=== PATIENT | male | born 1965 | race Caucasian/White ===

== ENCOUNTER 2022-11-23 07:41 | Day surgery (SDC) | payer BC, SELFPAY ==
[2022-11-23] VITALS (8 sets, daily range): BP systolic 115–141; BP diastolic 72–89; PULSE 52–61; RESP 15–22; TEMP 36–36.8; O2SAT 94–100
--- NOTE | 2022-11-23 08:10 | ED.GENADULT ---
HPI - General Adult General Chief complaint: Unspecified Stated complaint: food lodged in throat Time Seen by Provider: 11/23/22 07:54 History of Present Illness HPI narrative: Patient is a 57-year-old male who presents ER with esophageal food impaction. Patient has history of esophageal stricture. Last dilation was in 2019. Last night he was eating some pulled pork and Armenian fries. He took 1 bite and immediately got stuck. Since then he has had water brash. When you cannot eat or drink anything. No fevers or chills or sweats. Denies aspiration. Related Data Allergies Allergy/AdvReac Type Severity Reaction Status Date / Time White Fish Allergy Severe HIVES Uncoded 01/14/19 08:42 Cashew Allergy Mild ITCHING Uncoded 01/14/19 08:42 AND SWELLING. DEER BLOOD Allergy Mild THROAT Uncoded 09/21/09 09:28 SWELLING Review of Systems Review of Systems: All systems reviewed & are unremarkable except as noted in HPI and below ENT: Reports dysphagia, Denies throat swelling and Denies tongue swelling Gastrointestinal: Gastrointestinal: Denies abdominal pain, Denies nausea and Reports vomiting PMFSH Past Medical History Medical History (Updated 11/23/22 @ 08:43 by Moses Ortega MD) Esophageal stricture GERD (gastroesophageal reflux disease) Surgical History Surgical History (Updated 11/23/22 @ 08:12 by Moses Ortega MD) History of colonoscopy History of endoscopy Exam Narrative: GENERAL: Well-appearing, well-nourished, and in no acute distress. HEAD: Normocephalic, atraumatic. ENT: Mucous membranes moist. Frequent spitting of oral secretions. CHEST: Clear to auscultation. No respiratory distress. HEART: Regular rate and rhythm. Normal peripheral pulses. ABDOMEN: Soft, nontender, nondistended. EXTREMITIES: Normal range of motion. No edema. SKIN: Warm, dry, no rash. NEURO: Alert and oriented x3. PSYCH: Normal mood and affect. Course Course Emergency Course: Discussed the case with Dr. Knowles. He will take the patient to the GI suite. Vital Signs Vital signs: Vital Signs Temperature 98.3 F 11/23/22 07:43 Pulse Rate 60 11/23/22 07:43 Respiratory Rate 18 11/23/22 07:43 Blood Pressure 131/83 11/23/22 07:43 Pulse Oximetry 98 11/23/22 07:43 Oxygen Delivery Room Air 11/23/22 07:43 Temperature 98.3 F 11/23/22 07:43 Pulse Rate 60 11/23/22 07:43 Respiratory Rate 18 11/23/22 07:43 Blood Pressure 131/83 11/23/22 07:43 Pulse Oximetry 98 11/23/22 07:43 Oxygen Delivery Room Air 11/23/22 07:43 Medical Decision Making Vital Signs Vital Signs: Vital Signs Temperature 98.3 F 11/23/22 07:43 Pulse Rate 60 11/23/22 07:43 Respiratory Rate 18 11/23/22 07:43 Blood Pressure 131/83 11/23/22 07:43 Pulse Oximetry 98 11/23/22 07:43 Oxygen Delivery Room Air 11/23/22 07:43 Temperature 98.3 F 11/23/22 07:43 Pulse Rate 60 11/23/22 07:43 Respiratory Rate 18 11/23/22 07:43 Blood Pressure 131/83 11/23/22 07:43 Pulse Oximetry 98 11/23/22 07:43 Oxygen Delivery Room Air 11/23/22 07:43 Discharge Plan Discharge Clinical Impression: Esophageal obstruction due to food impaction, Food impaction of esophagus Patient Disposition: Still a Patient Condition: Stable Follow-up/Referrals: Ernesto Coello MD [Primary Care Provider] -
[2022-11-23] MEDS: LACTATED RINGERS 1,000 ML 150 ML IV CONT (10:46)
--- NOTE | 2022-11-23 11:15 | WPDANESEPPF ---
Anes - Initial Pre Proc Eval Procedure: Operation Date: 11/23/22 12:00 Proposed Procedures p Esophagogastroduodenoscopy - Zach Knowles MD Date/Time: 11/23/22 11:15 Surgeon: Zach Knowles MD Pre Op Diagnosis: food lodged in throat Patient Data Age: 57 Gender: M Height: 1.91 m Weight: 98.6 kg Last Vital Signs Temp 96.8 F L 11/23/22 10:42 Pulse 53 L 11/23/22 10:42 Resp 18 11/23/22 10:42 BP 127/72 11/23/22 10:42 Pulse Ox 100 11/23/22 10:42 O2 Del Method Room Air 11/23/22 10:42 Allergies Allergy/AdvReac Type Severity Reaction Status Date / Time White Fish Allergy Severe HIVES Uncoded 11/23/22 10:38 Cashew Allergy Mild ITCHING Uncoded 11/23/22 10:38 AND SWELLING. DEER BLOOD Allergy Mild THROAT Uncoded 11/23/22 10:38 SWELLING Patient hx anesthesia problems: none Family hx anesthesia problems: none Results Review: All pre-operative results and documents have been reviewed as part of the pre-operative evaluation. [facility] Past Medical History Medical History (Updated 11/23/22 @ 08:43 by Moses Ortega MD) Esophageal stricture GERD (gastroesophageal reflux disease) Surgical History Surgical History (Updated 11/23/22 @ 08:12 by Moses Ortega MD) History of colonoscopy History of endoscopy Anes - Eval Final PreProcedure Day of Procedure 11/23/22 11:15 Patient weight: normal Heart: regular rate and rhythm Lungs: clear to auscultation Airway: Mallampati scale class II Neurological: alert and oriented Last oral intake: >/= 8 hours ASA classification: II Emergent: no Anesthetic plan: proceed Anesthesia type and monitoring: general GIVS and standard monitoring Results Review: All pre-operative results and documents have been reviewed as part of the pre-operative evaluation. Informed Consent: The patient's anesthetic plan and its attendant risks and benefits were discussed with the patient/family/POA. Questions were solicited and answers provided to the satisfaction of the patient/family/POA.
== END 2022-11-23 12:10 | disposition home or self-care (01) ==
LOC: ANHED 08:43 → ANHENDO 09:11
PROVIDERS: Emergency Provider Emergency Medicine; PCP Family Medicine; Visit Provider Internal Medicine Gastroenterology
PROC: 0DJ08ZZ Inspection of Upper Intestinal Tract, Via Natural or Artificial Opening Endoscopic (ICD-10-PCS; CPT 43235; principal; 2022-11-23 12:00)
DX: T18.128A Food in esophagus causing other injury, initial encounter (principal); K22.2 Esophageal obstruction; K26.9 Duodenal ulcer, unspecified as acute or chronic, without hemorrhage or perforation; K20.0 Eosinophilic esophagitis
CPT/HCPCS: 43247; 43249; 43239; 87081; 88305; 99285; C1726; J2704; J7120

== ENCOUNTER 2022-12-29 00:50 | Day surgery (SDC) | payer BC, SELFPAY ==
[2022-12-19 14:31] VITALS: BMI 28.2
--- NOTE | 2022-12-28 16:28 | PM.HPGS ---
History of Present Illness History of Present Illness Consent: Risks, benefits, and alternatives have been discussed and questions answered. Patient agrees to proceed with procedure. Chief complaint: esophageal obstructionl, hx colon polyps Narrative: Dwayne Holman is a 57 year old male Who recently had presented to the emergency room with a food impaction with a meat bolus that had to be removed emergently. He was found have Inflammation and a severe stricture of the esophagus which was dilated a bit up to 15 mm. also, biopsies revealed high number of eosinophils in the proximal esophagus, 60 per HPF. He has had no significant problems swallowing since the procedure. He returns now for further investigation into ensure healing. he does have a history of colon polyps. Three adenomatous polyps were removed about 4 years ago Review of Systems Review of Systems: All systems reviewed & are unremarkable except as noted in HPI and below PMFSH Past Medical History Medical History Esophageal stricture GERD (gastroesophageal reflux disease) Surgical History Surgical History History of colonoscopy History of endoscopy Social History Social History Smoking status: Never smoker Alcohol intake: current Drinks per week: 12 Substance use: never Substance use type: does not use Living arrangements: with friend(s) Spiritual care concerns: No Meds Home Medications and Allergies Home Medications Medication Instructions Recorded Confirmed Type pantoprazole 40 mg tablet,delayed See Rx Instructions .Route 12/15/22 12/19/22 Rx release .COMPLEX #60 tabs Allergies Allergy/AdvReac Type Severity Reaction Status Date / Time White Fish Allergy Severe HIVES Uncoded 12/29/22 12:05 Cashew Allergy Mild ITCHING Uncoded 12/29/22 12:05 AND SWELLING. DEER BLOOD Allergy Mild THROAT Uncoded 12/29/22 12:05 SWELLING Exam Const: General: alert Orientation/consciousness: patient oriented x3 Resp: Auscultation: clear to auscultation bilaterally Cardio: Rhythm: regular rhythm GI: GI Palp: Yes Soft to palpation and No Tenderness to palpation present (GI) Neuro: General: patient oriented x3 Assessment and Plan Assessment and plan (1) Esophageal stricture: Code(s): K22.2 - Esophageal obstruction Status: Acute Assessment and Plan: EGD with possible biopsy or dilatation or cautery. (2) Colon cancer screening: Code(s): Z12.11 - Encounter for screening for malignant neoplasm of colon Status: Acute Assessment and Plan: Colonoscopy with possible biopsy or polypectomy or cautery or injection of substances.
[2022-12-29 12:08] VITALS: BP 114/74; PULSE 66; RESP 18; TEMP 36.1; O2SAT 99; BMI 26.4
[2022-12-29] MEDS: LACTATED RINGERS 1,000 ML 150 ML IV CONT (12:13)
--- NOTE | 2022-12-29 12:33 | WPDANESEPPF ---
Anes - Initial Pre Proc Eval Procedure: Operation Date: 12/29/22 13:30 Proposed Procedures p Esophagogastroduodenoscopy & Colonoscopy - Zach Knowles MD Date/Time: 12/29/22 12:33 Surgeon: Zach Knowles MD Pre Op Diagnosis: esophageal obstructionl, hx colon polyps Patient Data Age: 57 Gender: M Height: 1.91 m Weight: 96 kg Last Vital Signs Temp 96.9 F L 12/29/22 12:08 Pulse 66 12/29/22 12:08 Resp 18 12/29/22 12:08 BP 114/74 12/29/22 12:08 Pulse Ox 99 12/29/22 12:08 O2 Del Method Room Air 12/29/22 12:08 Allergies Allergy/AdvReac Type Severity Reaction Status Date / Time White Fish Allergy Severe HIVES Uncoded 12/29/22 12:05 Cashew Allergy Mild ITCHING Uncoded 12/29/22 12:05 AND SWELLING. DEER BLOOD Allergy Mild THROAT Uncoded 12/29/22 12:05 SWELLING Home Medications Medication Instructions Recorded Confirmed Type pantoprazole 40 mg tablet,delayed See Rx Instructions .Route 12/15/22 12/19/22 Rx release .COMPLEX #60 tabs Patient hx anesthesia problems: none Family hx anesthesia problems: none Results Review: All pre-operative results and documents have been reviewed as part of the pre-operative evaluation. [facility] Past Medical History Medical History (Updated 11/23/22 @ 12:18 by Zach Knowles MD) Esophageal stricture GERD (gastroesophageal reflux disease) Surgical History Surgical History (Updated 11/23/22 @ 08:12 by Moses Ortega MD) History of colonoscopy History of endoscopy Social History Social History Smoking status: Never smoker Alcohol intake: current Drinks per week: 12 Substance use: never Substance use type: does not use Living arrangements: with friend(s) Spiritual care concerns: No Anes - Eval Final PreProcedure Day of Procedure 12/29/22 12:33 Patient weight: normal Heart: regular rate and rhythm Lungs: clear to auscultation Airway: Mallampati scale class II Neurological: alert and oriented Last oral intake: >/= 8 hours ASA classification: II Emergent: no Anesthetic plan: proceed Anesthesia type and monitoring: general GIVS and standard monitoring Results Review: All pre-operative results and documents have been reviewed as part of the pre-operative evaluation. Informed Consent: The patient's anesthetic plan and its attendant risks and benefits were discussed with the patient/family/POA. Questions were solicited and answers provided to the satisfaction of the patient/family/POA.
--- NOTE | 2022-12-29 13:25 | SUR.OPER ---
EGD ended 1320 colonoscopy started 1326
[2022-12-29 13:40] VITALS: BP 97/69; PULSE 64; RESP 20; O2SAT 100
[2022-12-29 13:50] VITALS: BP 95/65; PULSE 62; RESP 16; O2SAT 98
[2022-12-29 14:00] VITALS: BP 111/78; PULSE 67; RESP 18; O2SAT 99
== END 2022-12-29 14:16 | disposition home or self-care (01) ==
PROVIDERS: PCP Family Medicine; Visit Provider Internal Medicine Gastroenterology
PROC: 0DJ08ZZ Inspection of Upper Intestinal Tract, Via Natural or Artificial Opening Endoscopic (ICD-10-PCS; CPT 43235; principal; 2022-12-29 13:30)
DX: Z12.11 Encounter for screening for malignant neoplasm of colon (principal); K64.8 Other hemorrhoids; K57.30 Diverticulosis of large intestine without perforation or abscess without bleeding; K63.5 Polyp of colon; K20.0 Eosinophilic esophagitis; Z87.11 Personal history of peptic ulcer disease; K21.9 Gastro-esophageal reflux disease without esophagitis; K22.2 Esophageal obstruction
CPT/HCPCS: 45380; 43249; 88305; C1726; J2001; J2704; J7120

== ENCOUNTER 2023-05-23 04:25 | Day surgery (SDC) | payer BC, SELFPAY ==
[2023-05-03 13:42] VITALS: BMI 28.3
--- NOTE | 2023-05-21 08:36 | SUR.PREOP ---
Patient called regarding upcoming procedure. Message left on pt's voicemail regarding appointment times.
--- NOTE | 2023-05-21 14:07 | PM.HPGS ---
History of Present Illness History of Present Illness Consent: Risks, benefits, and alternatives have been discussed and questions answered. Patient agrees to proceed with procedure. Chief complaint: eosinophilic esophagitis, esophageal obstruction Narrative: Dwayne Holman is a 57 year old male for follow-up of his eosinophilic esophagitis.? After having EGD in December at which time? we performed esophageal dilatation of the GE junction, he has had no further episodes of food getting stuck.? Admittedly, he is very careful to chew his food and he has avoided shredded pork which was why he had go to the emergency room initially with a food impaction in November.? Our concern is the fact that he has eosinophilic esophagitis and the eosinophil count was still high at the time of his 2nd EGD in December. Initially was 60 per hpf. Five weeks later after therapy with pantoprazole it was only down to 50. Review of Systems Review of Systems: All systems reviewed & are unremarkable except as noted in HPI and below PMFSH Past Medical History Medical History Esophageal stricture GERD (gastroesophageal reflux disease) Surgical History Surgical History History of colonoscopy History of endoscopy Social History Social History Smoking status: Never smoker Alcohol intake: current Drinks per week: 12 Substance use: never Substance use type: does not use Living arrangements: with family Spiritual care concerns: No Meds Home Medications and Allergies Home Medications Medication Instructions Recorded Confirmed Type pantoprazole 40 mg tablet,delayed See Rx Instructions .Route 03/27/23 05/03/23 Rx release .COMPLEX #180 tabs Allergies Allergy/AdvReac Type Severity Reaction Status Date / Time White Fish Allergy Severe HIVES Uncoded 05/03/23 13:42 Cashew Allergy Mild ITCHING Uncoded 05/03/23 13:42 AND SWELLING. DEER BLOOD Allergy Mild THROAT Uncoded 05/03/23 13:42 SWELLING Exam Const: General: alert Orientation/consciousness: patient oriented x3 Resp: Auscultation: clear to auscultation bilaterally Cardio: Rhythm: regular rhythm GI: GI Palp: Yes Soft to palpation and No Tenderness to palpation present (GI) Neuro: General: patient oriented x3 Assessment and Plan Assessment and plan (1) Eosinophilic esophagitis: Code(s): K20.0 - Eosinophilic esophagitis Status: Acute Assessment and Plan: EGD with possible biopsy or dilatation or cautery.
[2023-05-23 08:45] VITALS: BP 120/73; PULSE 60; RESP 18; TEMP 36.7; O2SAT 100; BMI 27.9
[2023-05-23] MEDS: LACTATED RINGERS 1,000 ML 150 ML IV CONT (09:05)
--- NOTE | 2023-05-23 09:19 | P.PNAN_ITS ---
Anes - Initial Pre Proc Eval Procedure: Operation Date: 05/23/23 10:00 Proposed Procedures p Esophagogastroduodenoscopy - Zach Knowles MD Date/Time: 05/23/23 09:19 Surgeon: Zach Knowles MD Pre Op Diagnosis: eosinophilic esophagitis, esophageal obstruction Patient Data Age: 57 Gender: M Height: 1.88 m Weight: 98.8 kg Last Vital Signs Temp 36.7 C 05/23/23 08:45 Pulse 60 05/23/23 08:45 Resp 18 05/23/23 08:45 BP 120/73 05/23/23 08:45 Pulse Ox 100 05/23/23 08:45 O2 Del Method Room Air 05/23/23 08:45 Allergies Allergy/AdvReac Type Severity Reaction Status Date / Time White Fish Allergy Severe HIVES Uncoded 05/03/23 13:42 Cashew Allergy Mild ITCHING Uncoded 05/03/23 13:42 AND SWELLING. DEER BLOOD Allergy Mild THROAT Uncoded 05/03/23 13:42 SWELLING Home Medications Medication Instructions Recorded Confirmed Type pantoprazole 40 mg tablet,delayed See Rx Instructions .Route 03/27/23 05/03/23 Rx release .COMPLEX #180 tabs Patient hx anesthesia problems: none Family hx anesthesia problems: none Results Review: All pre-operative results and documents have been reviewed as part of the pre- operative evaluation. [facility] Past Medical History Medical History Esophageal stricture GERD (gastroesophageal reflux disease) Surgical History Surgical History History of colonoscopy History of endoscopy Social History Social History Smoking status: Never smoker Alcohol intake: current Drinks per week: 12 Substance use: never Substance use type: does not use Living arrangements: with family Spiritual care concerns: No Anes - Eval Final PreProcedure Day of Procedure 05/23/23 09:19 Patient weight: overweight Heart: regular rate and rhythm Lungs: clear to auscultation Airway: Mallampati scale class II Neurological: alert and oriented Last oral intake: >/= 8 hours ASA classification: II Emergent: no Anesthetic plan: proceed Anesthesia type and monitoring: general GIVS and standard monitoring Results Review: All pre-operative results and documents have been reviewed as part of the pre- operative evaluation. Informed Consent: The patient's anesthetic plan and its attendant risks and benefits were discussed with the patient/family/POA. Questions were solicited and answers provided to the satisfaction of the patient/family/POA.
[2023-05-23 09:38] VITALS: BP 115/74; PULSE 58; RESP 13; O2SAT 100
[2023-05-23 09:49] VITALS: BP 125/82; PULSE 56; RESP 14; O2SAT 100
[2023-05-23 09:58] VITALS: BP 125/82; PULSE 56; RESP 18; O2SAT 100
== END 2023-05-23 10:13 | disposition home or self-care (01) ==
PROVIDERS: PCP Family Medicine; Visit Provider Internal Medicine Gastroenterology
PROC: 0DJ08ZZ Inspection of Upper Intestinal Tract, Via Natural or Artificial Opening Endoscopic (ICD-10-PCS; CPT 43235; principal; 2023-05-23 10:00)
DX: Z09 Encounter for follow-up examination after completed treatment for conditions other than malignant neoplasm (principal); K20.0 Eosinophilic esophagitis; K29.50 Unspecified chronic gastritis without bleeding
CPT/HCPCS: 43239; 88305; J2704; J7120